=== PATIENT | female | born 1955 | race Two or more races ===

== ENCOUNTER 2020-07-24 18:34 | Emergency (ER) | payer MEDICARE ==
[~2020-07-24] VITALS: Ht 157.5 cm; Wt 73.9 kg
[~2020-07-24 18:34] MED LIST: ASPI81CH43 PO; BENZ1TAB2 PO; CARB25TA75 PO; DIVA250T12 PO; ENAL2.5T7 PO; ESCI-28 PO; FURO20TA3 PO; GLIM4TAB42 PO; METF-370 PO; METO25TA93 PO; MULT-20 OR; MUPI2CRE17 EX; QUET100T46 PO; RANI150C11 PO; SIMV-13 PO; TRAZ-184 PO; ZINC220C8 PO; [UNRECOGNIZED DRUG - CODE] PO
[2020-07-24 20:03] LABS: Basophils # (auto) 0 10 ^3/uL (0-0.2); Basophils % (auto) 0.5 % (0.0-2.0); Eosinophils # (auto) 0.1 10 ^3/uL (0-0.8); Eosinophils % (auto) 1.5 % (0.0-7.0); Hematocrit 37.3 % (36.0-46.0); Hemoglobin 12.6 g/dL (12.2-16.2); Lymphocytes # (auto) 1.1 10 ^3/uL (0.4-5.4); Lymphocytes % (auto) 19.3 % (10.0-50.0); Mean Corpuscular Hemoglobin 30.7 pg (28.0-32.0); Mean Corpuscular Hgb Conc. 33.7 g/dL (32.0-36.0); Mean Corpuscular Volume 91.2 fL (80.0-100.0); Monocytes # (auto) 0.3 10 ^3/uL (0-1.3); Monocytes % (auto) 4.9 % (0.0-12.0); Neutrophils # (auto) 4.3 10 ^3/uL (1.6-8.6); Neutrophils % (auto) 73.8 % (37.0-80.0); Nucleated Red Blood Cells % 0.1 %; Platelet Count (auto) 173 10^3/uL (140-450); Red Blood Cells 4.09 10^6/uL (4.0-5.20); Red Cell Distribution Width 16.2 % (11.8-14.3); White Blood Cell 5.8 10^3/uL (4.4-10.8)
[2020-07-24 20:17] LABS: INR 0.92 (0.9-1.15)
[2020-07-24 20:21] LABS: Alanine Aminotransferase 9 U/L (13-56); Albumin 3.3 g/dL (3.4-5.0); Anion Gap 3 (5-15); Aspartate Aminotransferase 12 U/L (15-37); BUN/Creatinine Ratio 26.9; Blood Urea Nitrogen 43 mg/dL (7-18); Calcium 9.1 mg/dL (8.5-10.1); Carbon Dioxide 28 mmol/L (21-32); Chloride 110 mmol/L (98-107); GFR African American 42 mL/min; GFR Non-African American 34 mL/min; Glucose 134 mg/dL (74-106); Magnesium 2.3 mg/dL (1.6-2.6); Potassium 4.4 mmol/L (3.5-5.1); Sodium 141 mmol/L (136-145)
[2020-07-24 20:26] LABS: Alkaline Phosphatase 155 U/L (45-117); Bilirubin, Total 0.2 mg/dL (0.2-1.0); Total Protein 7.8 g/dL (6.4-8.2)
[2020-07-24] MEDS ORDERED: SODIUM CHLORIDE 0.9% 500 ML IV ONE (21:00)
[2020-07-24] MEDS ORDERED: DICYCLOMINE HCL (10MG/ML) 2 ML AMPULE IM ONE (21:15)
[2020-07-24] MEDS ORDERED: hydrALAZINE HCL 20 MG/ML VL IV ONE (22:00)
[2020-07-24] MEDS ORDERED: ACETAMINOPHEN 500 MG TAB PO ONE (22:00)
[2020-07-24 22:46] LABS: Urine Bacteria FEW /hpf (None Seen); Urine Blood Negative /uL (Negative); Urine Specific Gravity 1.007 (1.001-1.035); Urine WBC 6 /hpf (0 - 5)
[2020-07-25 00:21] VITALS: BP 178/79
== END 2020-07-25 01:25 | disposition home or self-care (01) ==
LOC: EDBD 18:34 → ER 18:36
DX: K59.00 Constipation, unspecified (principal); N39.0 Urinary tract infection, site not specified; E11.22 Type 2 diabetes mellitus with diabetic chronic kidney disease; I13.0 Hypertensive heart and chronic kidney disease with heart failure and stage 1 through stage 4 chronic kidney disease, or unspecified chronic kidney disease; N18.9 Chronic kidney disease, unspecified; I50.9 Heart failure, unspecified; Z79.82 Long term (current) use of aspirin; Z79.899 Other long term (current) drug therapy; Z20.822 Contact with and (suspected) exposure to COVID-19
CPT/HCPCS: 36415; 74176; 80053; 81001; 83605; 83735; 83880; 84484; 85025; 85610; 87426; 93005; 96361; 96372; 96374; 99285; J0360; J0500

== ENCOUNTER 2020-08-08 19:54 | Inpatient (IN) | payer MEDICARE, MEDICAID ==
[~2020-08-08] VITALS: Ht 165.1 cm; Wt 71.5 kg
[2020-08-08] MEDS ORDERED: DOPamine 1600MCG/ML D5W 250 ML IV ONE (19:56)
[2020-08-08] MEDS ORDERED: ATROPINE SULFATE 1 MG/1 ML VIAL ONE ×2 (19:57→20:04)
[2020-08-08] MEDS ORDERED: ATROPINE SULF 0.5 MG/5ML SYR IV STA ×2 (19:58→20:05)
[2020-08-08] MEDS: DOPamine 1600MCG/ML D5W 250 ML IV SCH (20:02)
[2020-08-08] MEDS ORDERED: SODIUM BICARBONATE 8.4% INJ 50ML SYRINGE ONE (20:11)
[2020-08-08] MEDS ORDERED: CALCIUM CHLOR(10%) 100MG/ML 10ML SYRINGE IV ONE (20:11)
[2020-08-08] MEDS ORDERED: GLUCAGON HYDROCHLORIDE (RDNA) 1 MG VIAL ONE ×2 (20:12→20:15)
[2020-08-08 20:38] VITALS: BP 106/39
[2020-08-08 21:07] LABS: Basophils # (auto) 0 10 ^3/uL (0-0.2); Basophils % (auto) 0.6 % (0.0-2.0); Eosinophils # (auto) 0 10 ^3/uL (0-0.8); Hematocrit 30.4 % (36.0-46.0); Hemoglobin 9.2 g/dL (12.2-16.2); Lymphocytes # (auto) 0.7 10 ^3/uL (0.4-5.4); Mean Corpuscular Hemoglobin 31.3 pg (28.0-32.0); Mean Corpuscular Hgb Conc. 30.4 g/dL (32.0-36.0); Mean Corpuscular Volume 103.1 fL (80.0-100.0); Monocytes # (auto) 0.4 10 ^3/uL (0-1.3); Monocytes % (auto) 9.8 % (0.0-12.0); Neutrophils % (auto) 71.6 % (37.0-80.0); Nucleated Red Blood Cells % 1.7 %; Platelet Count (auto) 145 10^3/uL (140-450); Red Blood Cells 2.95 10^6/uL (4.0-5.20); Red Cell Distribution Width 18.4 % (11.8-14.3); White Blood Cell 4.2 10^3/uL (4.4-10.8)
[2020-08-08 21:17] LABS: Albumin 2.8 g/dL (3.4-5.0); Anion Gap 5 (5-15); Blood Urea Nitrogen 69 mg/dL (7-18); Calcium 7.3 mg/dL (8.5-10.1); Carbon Dioxide 16 mmol/L (21-32); Chloride 114 mmol/L (98-107); Glucose 245 mg/dL (74-106); Magnesium 2.5 mg/dL (1.6-2.6); Sodium 135 mmol/L (136-145)
[2020-08-08 21:25] LABS: Alanine Aminotransferase 10 U/L (13-56); Alkaline Phosphatase 186 U/L (45-117); Aspartate Aminotransferase 16 U/L (15-37); BUN/Creatinine Ratio 24.9; Bilirubin, Total 0.2 mg/dL (0.2-1.0); GFR African American 22 mL/min; GFR Non-African American 18 mL/min; Total Protein 6.3 g/dL (6.4-8.2)
[2020-08-08 21:34] LABS: Potassium 7.3 mmol/L (3.5-5.1)
[2020-08-08] MEDS ORDERED: InsuLIN REG 1unit/0.01ml Soln (100units/ml) IV ONE (21:45)
[2020-08-08] MEDS ORDERED: CALCIUM GLUC 1,000mg/50ml-NS 50 ML IV ONE (21:45)
[2020-08-08] MEDS ORDERED: SODIUM ZIRCONIUM CYCL 10 GM PAK PO ONE (21:45)
[2020-08-08] MEDS ORDERED: DEXTROSE (50%) 50ML SYRG IV ONE (21:45)
[2020-08-08] MEDS ORDERED: ALBUTEROL SULF 2.5 MG/0.5ML(0.5%) NEB SOLN NEB ONE (21:45)
[2020-08-08] MEDS ORDERED: SODIUM BICARBONATE 8.4% INJ 50ML SYRINGE IV ONE (21:45)
[2020-08-08] MEDS ORDERED: ALBUTEROL SULF 2.5 MG/0.5ML(0.5%) NEB SOLN ONE (21:53)
[2020-08-08] MEDS: CARBIDOPA W LEVODOPA 25/100mg TABLET PO SCH (22:00)
[2020-08-08] MEDS ORDERED: NITROGLYCERIN 0.4 MG SL TAB SL PRN (22:00)
[2020-08-08] MEDS ORDERED: DEXTROSE (50%) 50ML SYRG IV PRN (22:00)
[2020-08-08] MEDS ORDERED: ATORVASTATIN 20 MG TAB PO SCH (22:00)
[2020-08-08] MEDS ORDERED: MORPHINE SULF INJ 2 MG/ML SYRINGE 1ML IV PRN (22:00)
[2020-08-08] MEDS ORDERED: ACETAMINOPHEN 325 MG TAB PO PRN (22:00)
[2020-08-08] MEDS ORDERED: InsuLIN REG 1unit/0.01ml Soln (100units/ml) ONE (22:06)
[2020-08-08 22:14] VITALS: BP 113/41
[2020-08-08 22:14] LABS: Urine Bacteria FEW /hpf (None Seen); Urine Blood Negative /uL (Negative); Urine Hyaline Cast FEW /lpf (0 - 2); Urine WBC 3 /hpf (0 - 5)
[2020-08-08] MEDS ORDERED: SODIUM BICARBONATE 50ML VIAL 150 ML in SOD CHL 0.45% 1,000 ML IV SCH (22:30)
[2020-08-08] MEDS ORDERED: SODIUM BICARBONATE 8.4 % INJ 50ML VIAL IV ONE (22:54)
[2020-08-09] VITALS (80 sets, daily range): BP systolic 92–177; BP diastolic 24–102
[2020-08-09] MEDS ORDERED: SODIUM BICARBONATE 8.4% INJ 50ML SYRINGE IV STA (00:05)
[2020-08-09] MEDS ORDERED: GLUCAGON HYDROCHLORIDE (RDNA) 1 MG VIAL IV ONE (00:15)
[2020-08-09] MEDS ORDERED: CALCIUM CHLOR(10%) 100MG/ML 10ML SYRINGE IV STA (00:16)
[2020-08-09] MEDS: InsuLIN REG 1unit/0.01ml Soln (100units/ml) SC SCH ×5 (01:39→22:00)
[2020-08-09] MEDS: ACCU-CHEK COMFORT CURVE STRIP VI SCH ×5 (01:43→22:18)
[2020-08-09] MEDS ORDERED: FUROSEMIDE 20 MG TAB PO SCH (06:00)
[2020-08-09] MEDS: CARBIDOPA W LEVODOPA 25/100mg TABLET PO SCH (06:00)
[2020-08-09] MEDS ORDERED: ETOMIDATE (2MG/ML) 20ML VIAL IV ONE (07:11)
[2020-08-09] MEDS ORDERED: SUCCINYLCHOLINE CHLORIDE 20 MG/ML 10ML VIAL IV ONE (07:11)
[2020-08-09] MEDS: DOPamine 1600MCG/ML D5W 250 ML IV SCH (07:30)
[2020-08-09] MEDS ORDERED: MIDAZOLAM DRIP 50 mg/50mL 50 ML IV ONE (07:42)
[2020-08-09 07:45] LABS: Basophils # (auto) 0 10 ^3/uL (0-0.2); Basophils % (auto) 0.2 % (0.0-2.0); Eosinophils # (auto) 0.1 10 ^3/uL (0-0.8); Eosinophils % (auto) 0.6 % (0.0-7.0); Hematocrit 31.2 % (36.0-46.0); Lymphocytes # (auto) 0.6 10 ^3/uL (0.4-5.4); Mean Corpuscular Hemoglobin 31.1 pg (28.0-32.0); Mean Corpuscular Hgb Conc. 32.1 g/dL (32.0-36.0); Mean Corpuscular Volume 96.9 fL (80.0-100.0); Monocytes # (auto) 1.7 10 ^3/uL (0-1.3); Monocytes % (auto) 16.6 % (0.0-12.0); Neutrophils # (auto) 7.9 10 ^3/uL (1.6-8.6); Neutrophils % (auto) 76.6 % (37.0-80.0); Nucleated Red Blood Cells % 1.3 %; Platelet Count (auto) 184 10^3/uL (140-450); Red Blood Cells 3.22 10^6/uL (4.0-5.20); Red Cell Distribution Width 17.3 % (11.8-14.3); White Blood Cell 10.3 10^3/uL (4.4-10.8)
[2020-08-09] MEDS: MIDAZOLAM DRIP 50 mg/50mL 50 ML IV SCH ×2 (08:00→14:14)
[2020-08-09] MEDS ORDERED: PANTOPRAZOLE 40 MG TAB PO SCH (10:00)
[2020-08-09 11:08] LABS: Albumin 2.7 g/dL (3.4-5.0); Anion Gap 6 (5-15); Blood Urea Nitrogen 67 mg/dL (7-18); Calcium 7.9 mg/dL (8.5-10.1); Carbon Dioxide 21 mmol/L (21-32); Chloride 112 mmol/L (98-107); Glucose 103 mg/dL (74-106); Sodium 139 mmol/L (136-145)
[2020-08-09 11:14] LABS: Alanine Aminotransferase 8 U/L (13-56); Alkaline Phosphatase 161 U/L (45-117); Aspartate Aminotransferase 13 U/L (15-37); BUN/Creatinine Ratio 24.5; Bilirubin, Total 0.3 mg/dL (0.2-1.0); GFR African American 22 mL/min; GFR Non-African American 18 mL/min; Total Protein 6.2 g/dL (6.4-8.2)
[2020-08-09 11:18] LABS: Potassium 6.5 mmol/L (3.5-5.1)
[2020-08-09] MEDS ORDERED: InsuLIN REG 1unit/0.01ml Soln (100units/ml) IV ONE (12:30)
[2020-08-09] MEDS ORDERED: SODIUM ZIRCONIUM CYCL 10 GM PAK GT ONE (12:30)
[2020-08-09] MEDS ORDERED: STERILE WATER IV SCH (12:30)
[2020-08-09] MEDS ORDERED: DEXTROSE (50%) 50ML SYRG IV ONE (12:30)
[2020-08-09] MEDS ORDERED: SODIUM BICARBONATE IV SCH (12:30)
[2020-08-09] MEDS ORDERED: SODIUM BICARBONATE 8.4 % INJ 50ML VIAL IV ONE (12:30)
[2020-08-09] MEDS ORDERED: PIPERACILLIN-TAZOB 3.375GM 100 ML IV ONE (14:00)
[2020-08-09] MEDS ORDERED: PANTOPRAZOLE 40 MG/10 ML VIAL INJ IV ONE (14:00)
[2020-08-09] MEDS ORDERED: ENOXAPARIN SOD 30 MG/0.3 ML SYRINGE SC ONE (14:00)
[2020-08-09] MEDS: SODIUM BICARBONATE 50ML VIAL 150 ML in SOD CHL 0.45% 1,000 ML IV SCH (15:00)
[2020-08-09] MEDS: FUROSEMIDE 20 MG/2 ML VIAL IV SCH (17:53)
[2020-08-09] MEDS: PIPERACILLIN-TAZOB 3.375GM 100 ML IV SCH (22:18)
[2020-08-09] MEDS: SODIUM CHLOR 0.9% PF (SALINE LOCK) 10ML VIAL/SYR IV SCH (22:18)
[2020-08-09] MEDS ORDERED: fentaNYL Drip 2500mCg/250mlNS 250 ML IV ONE (22:48)
[2020-08-09] MEDS: fentaNYL Drip 2500mCg/250mlNS 250 ML IV SCH ×2 (22:50→23:00)
[2020-08-09 23:34] LABS: Calcium 6.4 mg/dL (8.5-10.1); Potassium 4.7 mmol/L (3.5-5.1)
[2020-08-09 23:38] LABS: BUN/Creatinine Ratio 27.8
[2020-08-09] MEDS ORDERED: CALCIUM GLUC 1,000mg/50ml-NS 50 ML IV ONE (23:45)
[2020-08-09] MEDS ORDERED: CALCIUM GLUC 4.65 MEQ/10ML 10 ML IV ONE (23:57)
[2020-08-10] VITALS (96 sets, daily range): BP systolic 104–188; BP diastolic 40–87
[2020-08-10] MEDS: MIDAZOLAM DRIP 50 mg/50mL 50 ML IV SCH ×5 (00:38→19:48)
[2020-08-10] MEDS ORDERED: SODIUM CHLORIDE 0.9% 1,000 ML IV SCH (02:45)
[2020-08-10] MEDS: DOPamine 1600MCG/ML D5W 250 ML IV SCH ×2 (04:40→17:26)
[2020-08-10] MEDS: SODIUM BICARBONATE 50ML VIAL 150 ML in SOD CHL 0.45% 1,000 ML IV SCH ×5 (05:53→17:26)
[2020-08-10] MEDS: FUROSEMIDE 20 MG/2 ML VIAL IV SCH ×2 (05:54→17:48)
[2020-08-10] MEDS: PIPERACILLIN-TAZOB 3.375GM 100 ML IV SCH ×3 (05:54→21:35)
[2020-08-10 06:20] LABS: Basophils # (auto) 0 10 ^3/uL (0-0.2); Basophils % (auto) 0.6 % (0.0-2.0); Eosinophils # (auto) 0.1 10 ^3/uL (0-0.8); Eosinophils % (auto) 1.7 % (0.0-7.0); Hematocrit 21.9 % (36.0-46.0); Lymphocytes # (auto) 0.8 10 ^3/uL (0.4-5.4); Lymphocytes % (auto) 16.3 % (10.0-50.0); Mean Corpuscular Hemoglobin 32.1 pg (28.0-32.0); Mean Corpuscular Hgb Conc. 35.3 g/dL (32.0-36.0); Monocytes # (auto) 0.5 10 ^3/uL (0-1.3); Monocytes % (auto) 10.6 % (0.0-12.0); Neutrophils # (auto) 3.4 10 ^3/uL (1.6-8.6); Neutrophils % (auto) 70.8 % (37.0-80.0); Nucleated Red Blood Cells % 0.4 %; Platelet Count (auto) 127 10^3/uL (140-450); Red Cell Distribution Width 16.5 % (11.8-14.3); White Blood Cell 4.8 10^3/uL (4.4-10.8)
[2020-08-10 06:22] LABS: Hemoglobin 7.7 g/dL (12.2-16.2)
[2020-08-10] MEDS: ACCU-CHEK COMFORT CURVE STRIP VI SCH ×4 (06:26→21:34)
[2020-08-10] MEDS: InsuLIN REG 1unit/0.01ml Soln (100units/ml) SC SCH ×4 (06:26→21:34)
[2020-08-10 06:43] LABS: Calcium 7.5 mg/dL (8.5-10.1)
[2020-08-10 06:45] LABS: BUN/Creatinine Ratio 27.5
[2020-08-10] MEDS: PANTOPRAZOLE 40 MG/10 ML VIAL INJ IV SCH (09:42)
[2020-08-10] MEDS: SODIUM CHLOR 0.9% PF (SALINE LOCK) 10ML VIAL/SYR IV SCH ×2 (09:43→22:00)
[2020-08-10] MEDS ORDERED: ENOXAPARIN SOD 30 MG/0.3 ML SYRINGE SC SCH (10:00)
[2020-08-10] MEDS: hydrALAZINE HCL 20 MG/ML VL IV PRN ×2 (13:06→21:35)
[2020-08-10 13:43] LABS: % Iron Saturation 14.8 % (15-50)
[2020-08-10] MEDS ORDERED: SODIUM FERR GLUC 62.5MG/5ML 125 MG in SODIUM CHL 0.9% 100 ML IV ONE (14:15)
[2020-08-11] VITALS (90 sets, daily range): BP systolic 87–180; BP diastolic 40–89
[2020-08-11] MEDS: MIDAZOLAM DRIP 50 mg/50mL 50 ML IV SCH ×2 (03:24→18:27)
[2020-08-11 04:23] LABS: Basophils # (auto) 0 10 ^3/uL (0-0.2); Eosinophils # (auto) 0.1 10 ^3/uL (0-0.8); Hematocrit 21.7 % (36.0-46.0); Lymphocytes # (auto) 0.8 10 ^3/uL (0.4-5.4); Monocytes # (auto) 0.4 10 ^3/uL (0-1.3); Platelet Count (auto) 133 10^3/uL (140-450); White Blood Cell 4.2 10^3/uL (4.4-10.8)
[2020-08-11 04:26] LABS: Basophils % (auto) 0.6 % (0.0-2.0); Eosinophils % (auto) 3.2 % (0.0-7.0); Hemoglobin 7.4 g/dL (12.2-16.2); Lymphocytes % (auto) 18.9 % (10.0-50.0); Mean Corpuscular Hemoglobin 31.1 pg (28.0-32.0); Mean Corpuscular Hgb Conc. 34.3 g/dL (32.0-36.0); Mean Corpuscular Volume 90.7 fL (80.0-100.0); Monocytes % (auto) 9.9 % (0.0-12.0); Neutrophils # (auto) 2.8 10 ^3/uL (1.6-8.6); Neutrophils % (auto) 67.4 % (37.0-80.0); Nucleated Red Blood Cells % 0.1 %; Red Blood Cells 2.39 10^6/uL (4.0-5.20); Red Cell Distribution Width 16.6 % (11.8-14.3)
[2020-08-11 04:43] LABS: Potassium 4.2 mmol/L (3.5-5.1)
[2020-08-11 04:47] LABS: BUN/Creatinine Ratio 26.9; Calcium 7.3 mg/dL (8.5-10.1); Phosphorus 3.4 mg/dL (2.5-4.90)
[2020-08-11] MEDS: SODIUM BICARBONATE 50ML VIAL 150 ML in SOD CHL 0.45% 1,000 ML IV SCH ×3 (05:00→20:20)
[2020-08-11] MEDS: PIPERACILLIN-TAZOB 3.375GM 100 ML IV SCH ×3 (06:28→22:09)
[2020-08-11] MEDS: FUROSEMIDE 20 MG/2 ML VIAL IV SCH ×2 (06:28→18:00)
[2020-08-11] MEDS: InsuLIN REG 1unit/0.01ml Soln (100units/ml) SC SCH ×4 (07:00→22:00)
[2020-08-11] MEDS: ACCU-CHEK COMFORT CURVE STRIP VI SCH ×4 (07:18→22:04)
[2020-08-11] MEDS: fentaNYL Drip 2500mCg/250mlNS 250 ML IV SCH (09:03)
[2020-08-11] MEDS: hydrALAZINE HCL 20 MG/ML VL IV PRN (09:21)
[2020-08-11] MEDS: PANTOPRAZOLE 40 MG/10 ML VIAL INJ IV SCH (09:32)
[2020-08-11] MEDS: SODIUM CHLOR 0.9% PF (SALINE LOCK) 10ML VIAL/SYR IV SCH ×2 (09:33→22:04)
[2020-08-11] MEDS: DOPamine 1600MCG/ML D5W 250 ML IV SCH (10:50)
[2020-08-11] MEDS: SODIUM FERR GLUC 62.5MG/5ML 125 MG in SODIUM CHL 0.9% 100 ML IV SCH (12:10)
[2020-08-11] MEDS ORDERED: FUROSEMIDE 40 MG/4 ML VIAL IV ONE (12:15)
[2020-08-11] MEDS ORDERED: METOPROLOL TARTRATE 25 MG TAB PO ONE ×2 (13:45→14:15)
[2020-08-11] MEDS ORDERED: CARBIDOPA W LEVODOPA 25/100mg TABLET PO SCH (14:00)
[2020-08-11] MEDS: CARBIDOPA W LEVODOPA 25/100mg TABLET PO SCH ×2 (14:52→22:48)
[2020-08-11] MEDS ORDERED: ETOMIDATE (2MG/ML) 20ML VIAL IV ONE (17:33)
[2020-08-11] MEDS ORDERED: ROCURONIUM 10MG/ML 10ML VIAL IV ONE (17:33)
[2020-08-11] MEDS: METOPROLOL TARTRATE 25 MG TAB PO SCH (22:00)
[2020-08-11] MEDS ORDERED: METOPROLOL TARTRATE 25 MG TAB PO SCH (22:00)
[2020-08-12] VITALS (100 sets, daily range): BP systolic 68–175; BP diastolic 47–78
[2020-08-12] MEDS: MIDAZOLAM DRIP 50 mg/50mL 50 ML IV SCH ×3 (00:26→20:00)
[2020-08-12] MEDS: DOPamine 1600MCG/ML D5W 250 ML IV SCH ×2 (01:55→14:20)
[2020-08-12] MEDS: SODIUM BICARBONATE 50ML VIAL 150 ML in SOD CHL 0.45% 1,000 ML IV SCH ×3 (04:00→19:20)
[2020-08-12 04:39] LABS: Basophils # (auto) 0.1 10 ^3/uL (0-0.2); Eosinophils # (auto) 0.1 10 ^3/uL (0-0.8); Lymphocytes # (auto) 0.9 10 ^3/uL (0.4-5.4); Lymphocytes % (auto) 19.2 % (10.0-50.0); Mean Corpuscular Volume 91.1 fL (80.0-100.0); Red Cell Distribution Width 16.8 % (11.8-14.3); White Blood Cell 4.6 10^3/uL (4.4-10.8)
[2020-08-12 04:41] LABS: Basophils % (auto) 1.1 % (0.0-2.0); Eosinophils % (auto) 2.7 % (0.0-7.0); Mean Corpuscular Hemoglobin 31.8 pg (28.0-32.0); Mean Corpuscular Hgb Conc. 34.9 g/dL (32.0-36.0); Monocytes # (auto) 0.6 10 ^3/uL (0-1.3); Monocytes % (auto) 12.7 % (0.0-12.0); Neutrophils % (auto) 64.3 % (37.0-80.0); Nucleated Red Blood Cells % 0.1 %; Platelet Count (auto) 149 10^3/uL (140-450); Red Blood Cells 2.52 10^6/uL (4.0-5.20)
[2020-08-12 05:06] LABS: Calcium 7.5 mg/dL (8.5-10.1); Potassium 4.4 mmol/L (3.5-5.1)
[2020-08-12 05:08] LABS: BUN/Creatinine Ratio 22.2
[2020-08-12] MEDS: ACCU-CHEK COMFORT CURVE STRIP VI SCH ×4 (06:19→21:51)
[2020-08-12] MEDS: FUROSEMIDE 20 MG/2 ML VIAL IV SCH ×2 (06:19→18:40)
[2020-08-12] MEDS: CARBIDOPA W LEVODOPA 25/100mg TABLET PO SCH ×3 (06:19→21:51)
[2020-08-12] MEDS: PIPERACILLIN-TAZOB 3.375GM 100 ML IV SCH (06:19)
[2020-08-12] MEDS: InsuLIN REG 1unit/0.01ml Soln (100units/ml) SC SCH ×4 (06:30→21:58)
[2020-08-12] MEDS: PANTOPRAZOLE 40 MG/10 ML VIAL INJ IV SCH (11:29)
[2020-08-12] MEDS: SODIUM CHLOR 0.9% PF (SALINE LOCK) 10ML VIAL/SYR IV SCH ×2 (11:30→21:50)
[2020-08-12] MEDS: METOPROLOL TARTRATE 25 MG TAB PO SCH ×2 (11:30→21:50)
[2020-08-12] MEDS: SODIUM FERR GLUC 62.5MG/5ML 125 MG in SODIUM CHL 0.9% 100 ML IV SCH (11:31)
[2020-08-12] MEDS: hydrALAZINE HCL 20 MG/ML VL IV PRN (21:50)
[2020-08-12] MEDS: fentaNYL Drip 2500mCg/250mlNS 250 ML IV SCH ×2 (23:00→23:50)
[2020-08-13] VITALS (100 sets, daily range): BP systolic 109–182; BP diastolic 43–76
[2020-08-13] MEDS: MIDAZOLAM DRIP 50 mg/50mL 50 ML IV SCH ×3 (01:22→21:28)
[2020-08-13] MEDS: SODIUM BICARBONATE 50ML VIAL 150 ML in SOD CHL 0.45% 1,000 ML IV SCH ×3 (03:00→18:20)
[2020-08-13] MEDS: CARBIDOPA W LEVODOPA 25/100mg TABLET PO SCH ×3 (05:58→21:27)
[2020-08-13] MEDS: FUROSEMIDE 20 MG/2 ML VIAL IV SCH ×2 (05:58→18:33)
[2020-08-13] MEDS: InsuLIN REG 1unit/0.01ml Soln (100units/ml) SC SCH ×4 (06:19→22:00)
[2020-08-13] MEDS: ACCU-CHEK COMFORT CURVE STRIP VI SCH ×4 (06:19→22:00)
[2020-08-13] MEDS ORDERED: Glucerna 1.2 Cal 1Liter BOTTLE GT SCH (07:30)
[2020-08-13] MEDS: DOPamine 1600MCG/ML D5W 250 ML IV SCH ×2 (08:05→23:10)
[2020-08-13] MEDS: METOPROLOL TARTRATE 25 MG TAB PO SCH ×2 (11:05→21:27)
[2020-08-13] MEDS: levoFLOXacin 500MG 100 ML IV SCH (11:05)
[2020-08-13] MEDS: PANTOPRAZOLE 40 MG/10 ML VIAL INJ IV SCH (11:06)
[2020-08-13] MEDS: SODIUM CHLOR 0.9% PF (SALINE LOCK) 10ML VIAL/SYR IV SCH ×2 (11:12→22:00)
[2020-08-13] MEDS: hydrALAZINE HCL 20 MG/ML VL IV PRN ×2 (11:41→19:07)
[2020-08-13] MEDS: SODIUM FERR GLUC 62.5MG/5ML 125 MG in SODIUM CHL 0.9% 100 ML IV SCH (15:36)
[2020-08-14] VITALS (89 sets, daily range): BP systolic 95–201; BP diastolic 44–99
[2020-08-14] MEDS: hydrALAZINE HCL 20 MG/ML VL IV PRN ×3 (01:03→21:50)
[2020-08-14] MEDS: SODIUM BICARBONATE 50ML VIAL 150 ML in SOD CHL 0.45% 1,000 ML IV SCH ×3 (02:00→17:20)
[2020-08-14] MEDS: fentaNYL Drip 2500mCg/250mlNS 250 ML IV SCH ×2 (03:23→23:11)
[2020-08-14] MEDS: MIDAZOLAM DRIP 50 mg/50mL 50 ML IV SCH ×2 (03:27→20:00)
[2020-08-14 04:41] LABS: Basophils # (auto) 0 10 ^3/uL (0-0.2); Basophils % (auto) 0.5 % (0.0-2.0); Eosinophils # (auto) 0.1 10 ^3/uL (0-0.8); Eosinophils % (auto) 3.2 % (0.0-7.0); Hematocrit 23.3 % (36.0-46.0); Hemoglobin 8.1 g/dL (12.2-16.2); Lymphocytes # (auto) 0.6 10 ^3/uL (0.4-5.4); Lymphocytes % (auto) 15.6 % (10.0-50.0); Mean Corpuscular Hemoglobin 32.2 pg (28.0-32.0); Mean Corpuscular Hgb Conc. 34.9 g/dL (32.0-36.0); Mean Corpuscular Volume 92.1 fL (80.0-100.0); Monocytes # (auto) 0.6 10 ^3/uL (0-1.3); Monocytes % (auto) 15.1 % (0.0-12.0); Neutrophils # (auto) 2.7 10 ^3/uL (1.6-8.6); Neutrophils % (auto) 65.6 % (37.0-80.0); Nucleated Red Blood Cells % 0.5 %; Platelet Count (auto) 125 10^3/uL (140-450); Red Blood Cells 2.53 10^6/uL (4.0-5.20); Red Cell Distribution Width 16.5 % (11.8-14.3); White Blood Cell 4.1 10^3/uL (4.4-10.8)
[2020-08-14 05:00] LABS: Chloride 113 mmol/L (98-107); Potassium 3.8 mmol/L (3.5-5.1); Sodium 142 mmol/L (136-145)
[2020-08-14 05:03] LABS: Anion Gap 7 (5-15); Aspartate Aminotransferase 11 U/L (15-37); BUN/Creatinine Ratio 17.7; Blood Urea Nitrogen 48 mg/dL (7-18); Calcium 8.2 mg/dL (8.5-10.1); Carbon Dioxide 22 mmol/L (21-32); GFR African American 23 mL/min; GFR Non-African American 19 mL/min; Glucose 110 mg/dL (74-106)
[2020-08-14 05:08] LABS: Alanine Aminotransferase < 6 U/L (13-56); Albumin 1.7 g/dL (3.4-5.0); Alkaline Phosphatase 145 U/L (45-117); Bilirubin, Total 0.3 mg/dL (0.2-1.0); Total Protein 5.7 g/dL (6.4-8.2)
[2020-08-14] MEDS: CARBIDOPA W LEVODOPA 25/100mg TABLET PO SCH ×3 (06:11→21:48)
[2020-08-14] MEDS: InsuLIN REG 1unit/0.01ml Soln (100units/ml) SC SCH ×4 (06:11→21:52)
[2020-08-14] MEDS: ACCU-CHEK COMFORT CURVE STRIP VI SCH ×4 (06:12→21:52)
[2020-08-14] MEDS: FUROSEMIDE 20 MG/2 ML VIAL IV SCH (06:15)
[2020-08-14] MEDS: METOPROLOL TARTRATE 25 MG TAB PO SCH ×2 (10:00→21:48)
[2020-08-14] MEDS: PANTOPRAZOLE 40 MG/10 ML VIAL INJ IV SCH (11:00)
[2020-08-14] MEDS: levoFLOXacin 500MG 100 ML IV SCH (11:00)
[2020-08-14] MEDS: SODIUM CHLOR 0.9% PF (SALINE LOCK) 10ML VIAL/SYR IV SCH ×2 (11:03→21:47)
[2020-08-14] MEDS ORDERED: EPOETIN ALFA-EPBX 10,000 UNIT/1ML VIAL SC ONE (11:15)
[2020-08-14] MEDS: SODIUM FERR GLUC 62.5MG/5ML 125 MG in SODIUM CHL 0.9% 100 ML IV SCH (12:44)
[2020-08-14 13:17] LABS: % Iron Saturation 18.1 % (15-50)
[2020-08-14] MEDS: DOPamine 1600MCG/ML D5W 250 ML IV SCH (14:15)
[2020-08-15] VITALS (93 sets, daily range): BP systolic 121–185; BP diastolic 49–92
[2020-08-15] MEDS: SODIUM BICARBONATE 50ML VIAL 150 ML in SOD CHL 0.45% 1,000 ML IV SCH ×4 (01:00→23:37)
[2020-08-15] MEDS: fentaNYL Drip 2500mCg/250mlNS 250 ML IV SCH ×2 (04:30→17:46)
[2020-08-15 04:37] LABS: Basophils # (auto) 0 10 ^3/uL (0-0.2); Eosinophils # (auto) 0.1 10 ^3/uL (0-0.8); Mean Corpuscular Hemoglobin 31.8 pg (28.0-32.0); Monocytes # (auto) 0.5 10 ^3/uL (0-1.3); Nucleated Red Blood Cells % 0.6 %; Red Cell Distribution Width 16.3 % (11.8-14.3)
[2020-08-15 04:39] LABS: Basophils % (auto) 0.7 % (0.0-2.0); Eosinophils % (auto) 4.3 % (0.0-7.0); Hematocrit 21.8 % (36.0-46.0); Hemoglobin 7.6 g/dL (12.2-16.2); Lymphocytes # (auto) 0.7 10 ^3/uL (0.4-5.4); Lymphocytes % (auto) 20.4 % (10.0-50.0); Mean Corpuscular Hgb Conc. 34.9 g/dL (32.0-36.0); Mean Corpuscular Volume 91.2 fL (80.0-100.0); Monocytes % (auto) 14.9 % (0.0-12.0); Neutrophils % (auto) 59.7 % (37.0-80.0); Platelet Count (auto) 101 10^3/uL (140-450); White Blood Cell 3.4 10^3/uL (4.4-10.8)
[2020-08-15 04:50] LABS: Albumin 1.7 g/dL (3.4-5.0); Anion Gap 8 (5-15); Carbon Dioxide 20 mmol/L (21-32); Chloride 113 mmol/L (98-107); Potassium 3.9 mmol/L (3.5-5.1); Sodium 141 mmol/L (136-145)
[2020-08-15 04:56] LABS: Alanine Aminotransferase < 6 U/L (13-56); Alkaline Phosphatase 131 U/L (45-117); Aspartate Aminotransferase 9 U/L (15-37); BUN/Creatinine Ratio 16.7; Bilirubin, Total 0.3 mg/dL (0.2-1.0); Blood Urea Nitrogen 41 mg/dL (7-18); GFR African American 25 mL/min; GFR Non-African American 21 mL/min; Glucose 79 mg/dL (74-106); Total Protein 5.3 g/dL (6.4-8.2)
[2020-08-15] MEDS: DOPamine 1600MCG/ML D5W 250 ML IV SCH (05:20)
[2020-08-15] MEDS: CARBIDOPA W LEVODOPA 25/100mg TABLET PO SCH ×3 (05:49→21:45)
[2020-08-15] MEDS: InsuLIN REG 1unit/0.01ml Soln (100units/ml) SC SCH ×4 (05:55→21:44)
[2020-08-15] MEDS: ACCU-CHEK COMFORT CURVE STRIP VI SCH ×4 (05:55→21:46)
[2020-08-15] MEDS: MIDAZOLAM DRIP 50 mg/50mL 50 ML IV SCH (05:56)
[2020-08-15] MEDS ORDERED: FUROSEMIDE 20 MG/2 ML VIAL IV SCH (10:00)
[2020-08-15] MEDS: levoFLOXacin 250MG 50 ML IV SCH (10:16)
[2020-08-15] MEDS: METOPROLOL TARTRATE 25 MG TAB PO SCH ×2 (10:17→21:46)
[2020-08-15] MEDS: PANTOPRAZOLE 40 MG/10 ML VIAL INJ IV SCH (10:17)
[2020-08-15] MEDS: ENOXAPARIN SOD 30 MG/0.3 ML SYRINGE SC SCH (10:17)
[2020-08-15] MEDS: SODIUM CHLOR 0.9% PF (SALINE LOCK) 10ML VIAL/SYR IV SCH ×2 (10:18→21:44)
[2020-08-15] MEDS: hydrALAZINE HCL 20 MG/ML VL IV PRN ×2 (12:15→20:11)
[2020-08-15] MEDS: SODIUM FERR GLUC 62.5MG/5ML 125 MG in SODIUM CHL 0.9% 100 ML IV SCH (14:03)
[2020-08-15] MEDS: hydrALAZINE HCL 25 MG TAB PO SCH (21:45)
[2020-08-16] VITALS (106 sets, daily range): BP systolic 111–192; BP diastolic 55–145
[2020-08-16] MEDS: MIDAZOLAM DRIP 50 mg/50mL 50 ML IV SCH ×2 (01:04→14:37)
[2020-08-16] MEDS: hydrALAZINE HCL 20 MG/ML VL IV PRN ×3 (02:49→17:15)
[2020-08-16] MEDS: fentaNYL Drip 2500mCg/250mlNS 250 ML IV SCH ×2 (04:28→20:56)
[2020-08-16 04:55] LABS: BUN/Creatinine Ratio 14.8; Calcium 8.6 mg/dL (8.5-10.1)
[2020-08-16] MEDS: CARBIDOPA W LEVODOPA 25/100mg TABLET PO SCH ×3 (06:17→21:30)
[2020-08-16] MEDS: InsuLIN REG 1unit/0.01ml Soln (100units/ml) SC SCH ×4 (06:18→21:34)
[2020-08-16] MEDS: ACCU-CHEK COMFORT CURVE STRIP VI SCH ×4 (06:18→21:31)
[2020-08-16] MEDS: hydrALAZINE HCL 25 MG TAB PO SCH ×3 (06:18→21:31)
[2020-08-16] MEDS: SODIUM BICARBONATE 50ML VIAL 150 ML in SOD CHL 0.45% 1,000 ML IV SCH ×3 (07:40→23:00)
[2020-08-16] MEDS: PANTOPRAZOLE 40 MG/10 ML VIAL INJ IV SCH (09:56)
[2020-08-16] MEDS: METOPROLOL TARTRATE 25 MG TAB PO SCH ×2 (09:56→21:31)
[2020-08-16] MEDS: levoFLOXacin 250MG 50 ML IV SCH (09:56)
[2020-08-16] MEDS: SODIUM CHLOR 0.9% PF (SALINE LOCK) 10ML VIAL/SYR IV SCH ×2 (09:57→21:31)
[2020-08-16] MEDS: ENOXAPARIN SOD 30 MG/0.3 ML SYRINGE SC SCH (09:57)
[2020-08-17] VITALS (94 sets, daily range): BP systolic 113–181; BP diastolic 54–95
[2020-08-17 04:31] LABS: Basophils # (auto) 0 10 ^3/uL (0-0.2); Basophils % (auto) 0.5 % (0.0-2.0); Hematocrit 22.6 % (36.0-46.0); Hemoglobin 7.9 g/dL (12.2-16.2); Nucleated Red Blood Cells % 0.1 %; White Blood Cell 4.8 10^3/uL (4.4-10.8)
[2020-08-17 04:33] LABS: Eosinophils # (auto) 0.2 10 ^3/uL (0-0.8); Eosinophils % (auto) 3.4 % (0.0-7.0); Lymphocytes # (auto) 0.4 10 ^3/uL (0.4-5.4); Lymphocytes % (auto) 8.3 % (10.0-50.0); Mean Corpuscular Hemoglobin 31.9 pg (28.0-32.0); Mean Corpuscular Volume 91.3 fL (80.0-100.0); Monocytes # (auto) 0.4 10 ^3/uL (0-1.3); Neutrophils # (auto) 3.8 10 ^3/uL (1.6-8.6); Neutrophils % (auto) 78.8 % (37.0-80.0); Platelet Count (auto) 106 10^3/uL (140-450); Red Blood Cells 2.48 10^6/uL (4.0-5.20); Red Cell Distribution Width 15.9 % (11.8-14.3)
[2020-08-17 04:49] LABS: BUN/Creatinine Ratio 12.6; Calcium 8.7 mg/dL (8.5-10.1)
[2020-08-17] MEDS: hydrALAZINE HCL 25 MG TAB PO SCH ×3 (06:24→21:45)
[2020-08-17] MEDS: SODIUM BICARBONATE 50ML VIAL 150 ML in SOD CHL 0.45% 1,000 ML IV SCH ×3 (06:24→21:46)
[2020-08-17] MEDS: ACCU-CHEK COMFORT CURVE STRIP VI SCH ×4 (06:24→21:46)
[2020-08-17] MEDS: CARBIDOPA W LEVODOPA 25/100mg TABLET PO SCH ×3 (06:24→21:45)
[2020-08-17] MEDS: InsuLIN REG 1unit/0.01ml Soln (100units/ml) SC SCH ×4 (06:27→21:49)
[2020-08-17] MEDS: MIDAZOLAM DRIP 50 mg/50mL 50 ML IV SCH (08:00)
[2020-08-17] MEDS: PANTOPRAZOLE 40 MG/10 ML VIAL INJ IV SCH (09:55)
[2020-08-17] MEDS: ENOXAPARIN SOD 30 MG/0.3 ML SYRINGE SC SCH (09:55)
[2020-08-17] MEDS: METOPROLOL TARTRATE 25 MG TAB PO SCH ×2 (09:56→21:46)
[2020-08-17] MEDS: levoFLOXacin 250MG 50 ML IV SCH (09:56)
[2020-08-17] MEDS: SODIUM CHLOR 0.9% PF (SALINE LOCK) 10ML VIAL/SYR IV SCH ×2 (09:57→21:46)
[2020-08-17] MEDS ORDERED: FUROSEMIDE 20 MG/2 ML VIAL IV ONE (12:15)
[2020-08-17] MEDS ORDERED: FUROSEMIDE 20 MG/2 ML VIAL ONE (12:16)
[2020-08-17] MEDS: hydrALAZINE HCL 20 MG/ML VL IV PRN ×2 (15:03→22:36)
[2020-08-17] MEDS: fentaNYL Drip 2500mCg/250mlNS 250 ML IV SCH (19:29)
[2020-08-17] MEDS: PROPOFOL 100 ML IV SCH (23:02)
[2020-08-18] VITALS (96 sets, daily range): BP systolic 110–175; BP diastolic 31–106
[2020-08-18] MEDS: SODIUM BICARBONATE 50ML VIAL 150 ML in SOD CHL 0.45% 1,000 ML IV SCH ×3 (05:40→17:16)
[2020-08-18] MEDS: CARBIDOPA W LEVODOPA 25/100mg TABLET PO SCH ×3 (05:47→22:29)
[2020-08-18] MEDS: hydrALAZINE HCL 25 MG TAB PO SCH ×3 (05:47→22:29)
[2020-08-18] MEDS: ACCU-CHEK COMFORT CURVE STRIP VI SCH ×4 (05:50→22:29)
[2020-08-18] MEDS: InsuLIN REG 1unit/0.01ml Soln (100units/ml) SC SCH ×4 (05:51→22:00)
[2020-08-18] MEDS: fentaNYL Drip 2500mCg/250mlNS 250 ML IV SCH (06:56)
[2020-08-18] MEDS: PROPOFOL 100 ML IV SCH ×2 (06:56→13:08)
[2020-08-18] MEDS: MIDAZOLAM DRIP 50 mg/50mL 50 ML IV SCH (07:34)
[2020-08-18] MEDS: FUROSEMIDE 40 MG/4 ML VIAL IV SCH (09:40)
[2020-08-18] MEDS: METOPROLOL TARTRATE 25 MG TAB PO SCH ×2 (09:41→22:00)
[2020-08-18] MEDS: SODIUM CHLOR 0.9% PF (SALINE LOCK) 10ML VIAL/SYR IV SCH ×2 (09:41→22:28)
[2020-08-18] MEDS: PANTOPRAZOLE 40 MG/10 ML VIAL INJ IV SCH (09:41)
[2020-08-18] MEDS: levoFLOXacin 250MG 50 ML IV SCH (09:41)
[2020-08-18] MEDS: ENOXAPARIN SOD 30 MG/0.3 ML SYRINGE SC SCH (09:42)
[2020-08-19] VITALS (96 sets, daily range): BP systolic 95–162; BP diastolic 46–97
[2020-08-19] MEDS: SODIUM BICARBONATE 50ML VIAL 150 ML in SOD CHL 0.45% 1,000 ML IV SCH ×3 (04:40→18:36)
[2020-08-19 04:51] LABS: Basophils # (auto) 0 10 ^3/uL (0-0.2); Eosinophils # (auto) 0.2 10 ^3/uL (0-0.8); Eosinophils % (auto) 3.6 % (0.0-7.0); Lymphocytes # (auto) 1.1 10 ^3/uL (0.4-5.4); Lymphocytes % (auto) 22.4 % (10.0-50.0); Mean Corpuscular Hemoglobin 32.5 pg (28.0-32.0); Mean Corpuscular Volume 90.4 fL (80.0-100.0); Monocytes # (auto) 0.4 10 ^3/uL (0-1.3); Monocytes % (auto) 8.3 % (0.0-12.0); Neutrophils # (auto) 3.2 10 ^3/uL (1.6-8.6); Neutrophils % (auto) 64.7 % (37.0-80.0); Nucleated Red Blood Cells % 0.3 %; Platelet Count (auto) 207 10^3/uL (140-450); Red Blood Cells 2.76 10^6/uL (4.0-5.20)
[2020-08-19 04:57] LABS: Potassium 3.3 mmol/L (3.5-5.1)
[2020-08-19 05:04] LABS: BUN/Creatinine Ratio 11.8; Calcium 8.1 mg/dL (8.5-10.1)
[2020-08-19] MEDS: hydrALAZINE HCL 25 MG TAB PO SCH ×3 (05:41→22:45)
[2020-08-19] MEDS: InsuLIN REG 1unit/0.01ml Soln (100units/ml) SC SCH ×4 (05:41→22:00)
[2020-08-19] MEDS: ACCU-CHEK COMFORT CURVE STRIP VI SCH ×4 (05:41→22:45)
[2020-08-19] MEDS: CARBIDOPA W LEVODOPA 25/100mg TABLET PO SCH ×3 (05:41→22:37)
[2020-08-19] MEDS: hydrALAZINE HCL 20 MG/ML VL IV PRN (06:25)
[2020-08-19] MEDS: MIDAZOLAM DRIP 50 mg/50mL 50 ML IV SCH (07:11)
[2020-08-19] MEDS: PROPOFOL 100 ML IV SCH ×3 (07:27→18:51)
[2020-08-19] MEDS: fentaNYL Drip 2500mCg/250mlNS 250 ML IV SCH ×2 (07:27→23:01)
[2020-08-19] MEDS ORDERED: POTASSIUM CHLORIDE 20 MEQ, LIDOCAINE 1% (LOCAL ANESTH.) 2 ML in SODIUM CHL 0.9% 100 ML IV ONE (09:15)
[2020-08-19] MEDS: ENOXAPARIN SOD 30 MG/0.3 ML SYRINGE SC SCH (09:55)
[2020-08-19] MEDS: FUROSEMIDE 40 MG/4 ML VIAL IV SCH (09:55)
[2020-08-19] MEDS: PANTOPRAZOLE 40 MG/10 ML VIAL INJ IV SCH (09:55)
[2020-08-19] MEDS: METOPROLOL TARTRATE 25 MG TAB PO SCH ×2 (09:56→22:00)
[2020-08-19] MEDS: levoFLOXacin 250MG 50 ML IV SCH (09:56)
[2020-08-19] MEDS: SODIUM CHLOR 0.9% PF (SALINE LOCK) 10ML VIAL/SYR IV SCH ×2 (10:00→22:37)
[2020-08-19] MEDS: SODIUM FERR GLUC 62.5MG/5ML 125 MG in SODIUM CHL 0.9% 100 ML IV SCH (12:57)
[2020-08-20] VITALS (82 sets, daily range): BP systolic 89–177; BP diastolic 44–94
[2020-08-20] MEDS: PROPOFOL 100 ML IV SCH ×5 (00:05→20:25)
[2020-08-20] MEDS: SODIUM BICARBONATE 50ML VIAL 150 ML in SOD CHL 0.45% 1,000 ML IV SCH ×4 (03:40→22:29)
[2020-08-20 04:47] LABS: Hematocrit 25.3 % (36.0-46.0); Hemoglobin 8.8 g/dL (12.2-16.2); Mean Corpuscular Hemoglobin 31.8 pg (28.0-32.0); Mean Corpuscular Hgb Conc. 34.9 g/dL (32.0-36.0); Mean Corpuscular Volume 91.1 fL (80.0-100.0); Platelet Count (auto) 255 10^3/uL (140-450); Red Blood Cells 2.77 10^6/uL (4.0-5.20); Red Cell Distribution Width 15.9 % (11.8-14.3); White Blood Cell 5.5 10^3/uL (4.4-10.8)
[2020-08-20 04:56] LABS: Albumin 2.1 g/dL (3.4-5.0); Anion Gap 10 (5-15); Blood Urea Nitrogen 30 mg/dL (7-18); Calcium 8.3 mg/dL (8.5-10.1); Carbon Dioxide 20 mmol/L (21-32); Chloride 111 mmol/L (98-107); Glucose 87 mg/dL (74-106); Potassium 3.7 mmol/L (3.5-5.1); Sodium 141 mmol/L (136-145)
[2020-08-20 04:57] LABS: Band Neutrophils % (manual) 0; Basophils % (manual) 0 (0.0-2.0); Blast Cells 0; Metamyelocytes % 0; Promyelocytes % 0; Reactive Lymphocytes 0
[2020-08-20 04:59] LABS: Alanine Aminotransferase < 6 U/L (13-56); Alkaline Phosphatase 139 U/L (45-117); Aspartate Aminotransferase 14 U/L (15-37); BUN/Creatinine Ratio 13.6; Bilirubin, Total 0.2 mg/dL (0.2-1.0); GFR African American 29 mL/min; GFR Non-African American 24 mL/min
[2020-08-20] MEDS: hydrALAZINE HCL 25 MG TAB PO SCH ×3 (05:57→22:28)
[2020-08-20] MEDS: CARBIDOPA W LEVODOPA 25/100mg TABLET PO SCH ×3 (05:57→22:28)
[2020-08-20 06:25] LABS: Eosinophils % (manual) 4 (0-7); Lymphocytes % (manual) 24 (10.0-50.0); Monocytes % (manual) 10 (0-12); Myelocytes % 1
[2020-08-20] MEDS: InsuLIN REG 1unit/0.01ml Soln (100units/ml) SC SCH ×4 (06:45→22:00)
[2020-08-20] MEDS: ACCU-CHEK COMFORT CURVE STRIP VI SCH ×4 (06:45→22:27)
[2020-08-20] MEDS: MIDAZOLAM DRIP 50 mg/50mL 50 ML IV SCH (07:49)
[2020-08-20] MEDS: FUROSEMIDE 40 MG/4 ML VIAL IV SCH (09:32)
[2020-08-20] MEDS: PANTOPRAZOLE 40 MG/10 ML VIAL INJ IV SCH (09:32)
[2020-08-20] MEDS: ENOXAPARIN SOD 30 MG/0.3 ML SYRINGE SC SCH (09:33)
[2020-08-20] MEDS: METOPROLOL TARTRATE 25 MG TAB PO SCH ×2 (09:33→22:00)
[2020-08-20] MEDS: LACTULOSE 20Gm/30ML SOLN NG SCH (09:33)
[2020-08-20] MEDS: SODIUM CHLOR 0.9% PF (SALINE LOCK) 10ML VIAL/SYR IV SCH ×2 (09:34→22:20)
[2020-08-20] MEDS: levoFLOXacin 250MG 50 ML IV SCH (09:34)
[2020-08-20] MEDS: fentaNYL Drip 2500mCg/250mlNS 250 ML IV SCH (10:17)
[2020-08-20] MEDS: SODIUM FERR GLUC 62.5MG/5ML 125 MG in SODIUM CHL 0.9% 100 ML IV SCH (12:29)
[2020-08-21] VITALS (102 sets, daily range): BP systolic 111–192; BP diastolic 55–93
[2020-08-21] MEDS: PROPOFOL 100 ML IV SCH ×2 (00:56→04:42)
[2020-08-21] MEDS: fentaNYL Drip 2500mCg/250mlNS 250 ML IV SCH (01:02)
[2020-08-21 05:10] LABS: Hematocrit 27.4 % (36.0-46.0); Hemoglobin 9.4 g/dL (12.2-16.2); Mean Corpuscular Hemoglobin 31.5 pg (28.0-32.0); Mean Corpuscular Hgb Conc. 34.2 g/dL (32.0-36.0); Mean Corpuscular Volume 92.1 fL (80.0-100.0); Platelet Count (auto) 271 10^3/uL (140-450); Red Blood Cells 2.97 10^6/uL (4.0-5.20); Red Cell Distribution Width 15.9 % (11.8-14.3)
[2020-08-21 05:16] LABS: Band Neutrophils % (manual) 0; Basophils % (manual) 0 (0.0-2.0); Blast Cells 0; Myelocytes % 0; Promyelocytes % 0; Reactive Lymphocytes 0
[2020-08-21 05:19] LABS: Albumin 2.2 g/dL (3.4-5.0); Anion Gap 9 (5-15); Blood Urea Nitrogen 33 mg/dL (7-18); Calcium 8.3 mg/dL (8.5-10.1); Carbon Dioxide 22 mmol/L (21-32); Chloride 111 mmol/L (98-107); Glucose 86 mg/dL (74-106); Potassium 3.8 mmol/L (3.5-5.1); Sodium 142 mmol/L (136-145)
[2020-08-21 05:22] LABS: Alanine Aminotransferase < 6 U/L (13-56); Alkaline Phosphatase 160 U/L (45-117); Aspartate Aminotransferase 16 U/L (15-37); BUN/Creatinine Ratio 15.5; Bilirubin, Total 0.2 mg/dL (0.2-1.0); GFR African American 30 mL/min; GFR Non-African American 25 mL/min; Total Protein 6.5 g/dL (6.4-8.2)
[2020-08-21] MEDS: InsuLIN REG 1unit/0.01ml Soln (100units/ml) SC SCH ×4 (06:31→21:58)
[2020-08-21] MEDS: CARBIDOPA W LEVODOPA 25/100mg TABLET PO SCH ×3 (06:31→21:29)
[2020-08-21] MEDS: ACCU-CHEK COMFORT CURVE STRIP VI SCH ×4 (06:31→21:57)
[2020-08-21 06:42] LABS: Eosinophils % (manual) 2 (0-7); Lymphocytes % (manual) 19 (10.0-50.0); Metamyelocytes % 1; Monocytes % (manual) 14 (0-12)
[2020-08-21] MEDS: hydrALAZINE HCL 25 MG TAB PO SCH ×3 (07:05→21:24)
[2020-08-21] MEDS: MIDAZOLAM DRIP 50 mg/50mL 50 ML IV SCH (08:00)
[2020-08-21] MEDS: hydrALAZINE HCL 20 MG/ML VL IV PRN ×2 (09:06→18:20)
[2020-08-21] MEDS: LACTULOSE 20Gm/30ML SOLN NG SCH (10:00)
[2020-08-21] MEDS: PANTOPRAZOLE 40 MG/10 ML VIAL INJ IV SCH (10:17)
[2020-08-21] MEDS: SODIUM CHLOR 0.9% PF (SALINE LOCK) 10ML VIAL/SYR IV SCH ×2 (10:18→21:57)
[2020-08-21] MEDS: METOPROLOL TARTRATE 25 MG TAB PO SCH ×2 (10:18→21:23)
[2020-08-21] MEDS: ENOXAPARIN SOD 30 MG/0.3 ML SYRINGE SC SCH (10:19)
[2020-08-21] MEDS: FUROSEMIDE 40 MG/4 ML VIAL IV SCH (10:20)
[2020-08-21] MEDS: SODIUM BICARBONATE 50ML VIAL 150 ML in SOD CHL 0.45% 1,000 ML IV SCH ×2 (10:20→18:00)
[2020-08-21] MEDS: ceFAZolin 1GM/50ML 50 ML IV SCH ×2 (10:59→21:57)
[2020-08-21] MEDS: SODIUM FERR GLUC 62.5MG/5ML 125 MG in SODIUM CHL 0.9% 100 ML IV SCH ×2 (12:18→14:54)
[2020-08-21] MEDS: MORPHINE SULF INJ 2 MG/ML SYRINGE 1ML IV PRN (19:03)
[2020-08-21] MEDS: ONDANSETRON HCL 4 MG/2 ML VIAL IV PRN (19:03)
[2020-08-21] MEDS: MIDAZOLAM HCL 1MG/1ML-2 ML VIAL IV PRN (21:54)
[2020-08-22] VITALS (35 sets, daily range): BP systolic 126–183; BP diastolic 49–87
[2020-08-22] MEDS: hydrALAZINE HCL 20 MG/ML VL IV PRN ×2 (00:05→16:11)
[2020-08-22] MEDS: IPRATROPIUM BROM 0.5 MG/2.5ML INH SOL NEB SCH ×4 (00:17→18:02)
[2020-08-22] MEDS: ALBUTEROL SULF 2.5 MG/0.5ML(0.5%) NEB SOLN NEB SCH ×4 (00:17→18:02)
[2020-08-22] MEDS: SODIUM BICARBONATE 50ML VIAL 150 ML in SOD CHL 0.45% 1,000 ML IV SCH ×2 (00:21→07:47)
[2020-08-22] MEDS: MORPHINE SULF INJ 2 MG/ML SYRINGE 1ML IV PRN (00:57)
[2020-08-22] MEDS ORDERED: dilTIAZem 25 MG/5 ML VIAL IV ONE (03:30)
[2020-08-22 05:06] LABS: Albumin 2.5 g/dL (3.4-5.0); Anion Gap 8 (5-15); Blood Urea Nitrogen 28 mg/dL (7-18); Calcium 9.3 mg/dL (8.5-10.1); Carbon Dioxide 24 mmol/L (21-32); Chloride 109 mmol/L (98-107); Glucose 120 mg/dL (74-106); Potassium 3.6 mmol/L (3.5-5.1); Sodium 141 mmol/L (136-145)
[2020-08-22 05:08] LABS: BUN/Creatinine Ratio 13.9; GFR African American 32 mL/min; GFR Non-African American 26 mL/min
[2020-08-22 05:11] LABS: Alanine Aminotransferase < 6 U/L (13-56); Alkaline Phosphatase 155 U/L (45-117); Aspartate Aminotransferase 15 U/L (15-37); Bilirubin, Total 0.2 mg/dL (0.2-1.0); Total Protein 7.2 g/dL (6.4-8.2)
[2020-08-22] MEDS: MIDAZOLAM HCL 1MG/1ML-2 ML VIAL IV PRN (05:30)
[2020-08-22 05:35] LABS: Basophils # (auto) 0.1 10 ^3/uL (0-0.2); Basophils % (auto) 0.7 % (0.0-2.0); Eosinophils # (auto) 0 10 ^3/uL (0-0.8); Eosinophils % (auto) 0.2 % (0.0-7.0); Hematocrit 30.4 % (36.0-46.0); Hemoglobin 10.3 g/dL (12.2-16.2); Lymphocytes # (auto) 0.9 10 ^3/uL (0.4-5.4); Lymphocytes % (auto) 8.9 % (10.0-50.0); Mean Corpuscular Hemoglobin 31.4 pg (28.0-32.0); Mean Corpuscular Hgb Conc. 33.9 g/dL (32.0-36.0); Mean Corpuscular Volume 92.5 fL (80.0-100.0); Monocytes # (auto) 0.4 10 ^3/uL (0-1.3); Monocytes % (auto) 3.4 % (0.0-12.0); Neutrophils # (auto) 9.1 10 ^3/uL (1.6-8.6); Neutrophils % (auto) 86.8 % (37.0-80.0); Platelet Count (auto) 339 10^3/uL (140-450); Red Blood Cells 3.29 10^6/uL (4.0-5.20); Red Cell Distribution Width 16.1 % (11.8-14.3); White Blood Cell 10.5 10^3/uL (4.4-10.8)
[2020-08-22] MEDS: CARBIDOPA W LEVODOPA 25/100mg TABLET PO SCH ×3 (06:19→22:37)
[2020-08-22] MEDS: hydrALAZINE HCL 25 MG TAB PO SCH ×3 (06:19→23:05)
[2020-08-22] MEDS: ACCU-CHEK COMFORT CURVE STRIP VI SCH ×4 (06:31→22:27)
[2020-08-22] MEDS: InsuLIN REG 1unit/0.01ml Soln (100units/ml) SC SCH ×4 (06:31→22:00)
[2020-08-22] MEDS: LACTULOSE 20Gm/30ML SOLN NG SCH (10:00)
[2020-08-22] MEDS: SODIUM CHLOR 0.9% PF (SALINE LOCK) 10ML VIAL/SYR IV SCH ×2 (10:00→22:21)
[2020-08-22] MEDS: ENOXAPARIN SOD 30 MG/0.3 ML SYRINGE SC SCH (10:28)
[2020-08-22] MEDS: METOPROLOL TARTRATE 25 MG TAB PO SCH ×2 (10:29→22:35)
[2020-08-22] MEDS: FUROSEMIDE 40 MG/4 ML VIAL IV SCH (10:29)
[2020-08-22] MEDS: PANTOPRAZOLE 40 MG/10 ML VIAL INJ IV SCH (10:29)
[2020-08-22] MEDS: ceFAZolin 1GM/50ML 50 ML IV SCH ×3 (10:29→22:38)
[2020-08-22] MEDS: SODIUM FERR GLUC 62.5MG/5ML 125 MG in SODIUM CHL 0.9% 100 ML IV SCH (12:30)
[2020-08-23] VITALS (25 sets, daily range): BP systolic 132–183; BP diastolic 63–95
[2020-08-23] MEDS: hydrALAZINE HCL 20 MG/ML VL IV PRN (04:09)
[2020-08-23 04:12] LABS: Basophils # (auto) 0.1 10 ^3/uL (0-0.2); Basophils % (auto) 0.5 % (0.0-2.0); Eosinophils # (auto) 0 10 ^3/uL (0-0.8); Eosinophils % (auto) 0.1 % (0.0-7.0); Hematocrit 31.7 % (36.0-46.0); Hemoglobin 10.6 g/dL (12.2-16.2); Lymphocytes # (auto) 0.9 10 ^3/uL (0.4-5.4); Lymphocytes % (auto) 8.2 % (10.0-50.0); Mean Corpuscular Hemoglobin 31.3 pg (28.0-32.0); Mean Corpuscular Hgb Conc. 33.3 g/dL (32.0-36.0); Mean Corpuscular Volume 94.1 fL (80.0-100.0); Monocytes # (auto) 0.7 10 ^3/uL (0-1.3); Monocytes % (auto) 6.4 % (0.0-12.0); Neutrophils # (auto) 9.8 10 ^3/uL (1.6-8.6); Neutrophils % (auto) 84.8 % (37.0-80.0); Nucleated Red Blood Cells % 0.1 %; Platelet Count (auto) 337 10^3/uL (140-450); Red Blood Cells 3.37 10^6/uL (4.0-5.20); White Blood Cell 11.5 10^3/uL (4.4-10.8)
[2020-08-23 04:35] LABS: Calcium 9.6 mg/dL (8.5-10.1); Potassium 3.9 mmol/L (3.5-5.1)
[2020-08-23 04:37] LABS: BUN/Creatinine Ratio 17.3
[2020-08-23] MEDS: InsuLIN REG 1unit/0.01ml Soln (100units/ml) SC SCH ×4 (06:02→22:45)
[2020-08-23] MEDS: ACCU-CHEK COMFORT CURVE STRIP VI SCH ×4 (06:02→22:00)
[2020-08-23] MEDS: ALBUTEROL SULF 2.5 MG/0.5ML(0.5%) NEB SOLN NEB SCH ×3 (06:16→11:34)
[2020-08-23] MEDS: IPRATROPIUM BROM 0.5 MG/2.5ML INH SOL NEB SCH ×5 (06:16→23:04)
[2020-08-23] MEDS: CARBIDOPA W LEVODOPA 25/100mg TABLET PO SCH ×3 (06:27→21:08)
[2020-08-23] MEDS: ONDANSETRON HCL 4 MG/2 ML VIAL IV PRN ×2 (06:36→22:47)
[2020-08-23] MEDS: hydrALAZINE HCL 25 MG TAB PO SCH (06:39)
[2020-08-23] MEDS: PANTOPRAZOLE 40 MG/10 ML VIAL INJ IV SCH (09:57)
[2020-08-23] MEDS: ENOXAPARIN SOD 30 MG/0.3 ML SYRINGE SC SCH (09:58)
[2020-08-23] MEDS: FUROSEMIDE 40 MG/4 ML VIAL IV SCH (09:58)
[2020-08-23] MEDS: METOPROLOL TARTRATE 25 MG TAB PO SCH (09:58)
[2020-08-23] MEDS: LACTULOSE 20Gm/30ML SOLN NG SCH (09:58)
[2020-08-23] MEDS: ceFAZolin 1GM/50ML 50 ML IV SCH ×2 (09:59→22:36)
[2020-08-23] MEDS: SODIUM CHLOR 0.9% PF (SALINE LOCK) 10ML VIAL/SYR IV SCH ×2 (09:59→21:07)
[2020-08-23] MEDS: METOPROLOL TARTRATE 50 MG TAB PO SCH ×2 (14:00→21:08)
[2020-08-23] MEDS ORDERED: DIGOXIN (250MCG/ML) 2 ML AMPULE ONE (22:25)
[2020-08-23] MEDS: DIGOXIN (250MCG/ML) 2 ML AMPULE IV SCH ×2 (22:47→23:20)
[2020-08-24] VITALS (7 sets, daily range): BP systolic 141–168; BP diastolic 61–98
[2020-08-24] MEDS: IPRATROPIUM BROM 0.5 MG/2.5ML INH SOL NEB SCH ×3 (06:27→18:18)
[2020-08-24] MEDS: ACCU-CHEK COMFORT CURVE STRIP VI SCH ×4 (06:44→22:15)
[2020-08-24] MEDS: CARBIDOPA W LEVODOPA 25/100mg TABLET PO SCH ×3 (06:44→22:00)
[2020-08-24] MEDS: InsuLIN REG 1unit/0.01ml Soln (100units/ml) SC SCH ×4 (06:45→22:15)
[2020-08-24] MEDS: PANTOPRAZOLE 40 MG/10 ML VIAL INJ IV SCH (08:26)
[2020-08-24] MEDS: SODIUM CHLOR 0.9% PF (SALINE LOCK) 10ML VIAL/SYR IV SCH ×2 (08:26→22:00)
[2020-08-24] MEDS: METOPROLOL TARTRATE 50 MG TAB PO SCH ×2 (08:27→22:15)
[2020-08-24] MEDS: ENOXAPARIN SOD 30 MG/0.3 ML SYRINGE SC SCH (08:27)
[2020-08-24 08:42] LABS: Basophils # (auto) 0.1 10 ^3/uL (0-0.2); Basophils % (auto) 0.6 % (0.0-2.0); Eosinophils # (auto) 0 10 ^3/uL (0-0.8); Eosinophils % (auto) 0.1 % (0.0-7.0); Hematocrit 32.4 % (36.0-46.0); Lymphocytes % (auto) 8.4 % (10.0-50.0); Mean Corpuscular Hemoglobin 31.6 pg (28.0-32.0); Mean Corpuscular Volume 92.9 fL (80.0-100.0); Monocytes # (auto) 0.8 10 ^3/uL (0-1.3); Monocytes % (auto) 6.2 % (0.0-12.0); Neutrophils # (auto) 10.3 10 ^3/uL (1.6-8.6); Neutrophils % (auto) 84.7 % (37.0-80.0); Platelet Count (auto) 311 10^3/uL (140-450); Red Blood Cells 3.48 10^6/uL (4.0-5.20); White Blood Cell 12.2 10^3/uL (4.4-10.8)
[2020-08-24 09:04] LABS: Calcium 9.7 mg/dL (8.5-10.1); Potassium 3.9 mmol/L (3.5-5.1)
[2020-08-24 09:07] LABS: BUN/Creatinine Ratio 22.3
[2020-08-24] MEDS: ceFAZolin 1GM/50ML 50 ML IV SCH ×2 (09:30→22:30)
[2020-08-24] MEDS ORDERED: FUROSEMIDE 20 MG/2 ML VIAL IV SCH (10:00)
[2020-08-24] MEDS: LABETALOL HCL 5 MG/ML 4ML SYRINGE IV PRN (12:03)
[2020-08-24] MEDS ORDERED: amLODIPine BESYLATE 5 MG TAB PO ONE (12:15)
[2020-08-24] MEDS ORDERED: FUROSEMIDE 20 MG TAB PO ONE (12:15)
[2020-08-24] MEDS: FUROSEMIDE 20 MG TAB PO SCH (17:17)
[2020-08-25] MEDS: LABETALOL HCL 5 MG/ML 4ML SYRINGE IV PRN ×2 (01:21→07:40)
[2020-08-25 05:00] VITALS: BP 164/100
[2020-08-25] MEDS: InsuLIN REG 1unit/0.01ml Soln (100units/ml) SC SCH ×3 (07:00→17:00)
[2020-08-25 07:02] LABS: Basophils # (auto) 0.1 10 ^3/uL (0-0.2); Basophils % (auto) 1.1 % (0.0-2.0); Eosinophils # (auto) 0.1 10 ^3/uL (0-0.8); Eosinophils % (auto) 1.7 % (0.0-7.0); Hematocrit 31.6 % (36.0-46.0); Lymphocytes # (auto) 1.4 10 ^3/uL (0.4-5.4); Lymphocytes % (auto) 17.7 % (10.0-50.0); Mean Corpuscular Hemoglobin 31.9 pg (28.0-32.0); Mean Corpuscular Hgb Conc. 34.7 g/dL (32.0-36.0); Mean Corpuscular Volume 91.9 fL (80.0-100.0); Monocytes # (auto) 0.5 10 ^3/uL (0-1.3); Monocytes % (auto) 6.5 % (0.0-12.0); Neutrophils # (auto) 5.9 10 ^3/uL (1.6-8.6); Platelet Count (auto) 308 10^3/uL (140-450); Red Blood Cells 3.44 10^6/uL (4.0-5.20); Red Cell Distribution Width 14.8 % (11.8-14.3); White Blood Cell 8.1 10^3/uL (4.4-10.8)
[2020-08-25] MEDS: IPRATROPIUM BROM 0.5 MG/2.5ML INH SOL NEB SCH ×3 (07:24→12:11)
[2020-08-25] MEDS: ACCU-CHEK COMFORT CURVE STRIP VI SCH ×3 (07:27→17:00)
[2020-08-25 07:28] LABS: Potassium 3.6 mmol/L (3.5-5.1)
[2020-08-25] MEDS: FUROSEMIDE 20 MG TAB PO SCH (07:28)
[2020-08-25] MEDS: CARBIDOPA W LEVODOPA 25/100mg TABLET PO SCH ×2 (07:29→13:23)
[2020-08-25 07:44] LABS: BUN/Creatinine Ratio 27.4; Calcium 9.1 mg/dL (8.5-10.1)
[2020-08-25 09:00] VITALS: BP 196/87
[2020-08-25] MEDS: SODIUM CHLOR 0.9% PF (SALINE LOCK) 10ML VIAL/SYR IV SCH (09:12)
[2020-08-25] MEDS: METOPROLOL TARTRATE 50 MG TAB PO SCH (09:12)
[2020-08-25] MEDS: ceFAZolin 1GM/50ML 50 ML IV SCH (09:13)
[2020-08-25] MEDS: ENOXAPARIN SOD 30 MG/0.3 ML SYRINGE SC SCH (09:13)
[2020-08-25] MEDS ORDERED: amLODIPine BESYLATE 5 MG TAB PO SCH (10:00)
[2020-08-25 12:57] VITALS: BP 155/78
[2020-08-26] MEDS ORDERED: ENOXAPARIN SOD 40 MG/0.4 ML SYRINGE SC SCH (10:00)
== END 2020-08-25 18:05 | disposition home or self-care (01) | DRG 870 ==
LOC: EDBD 19:54 → ER 19:56 → TELE 22:00 → ICU WEST 08-09 03:41 → TELE-EAST 08-24 02:27
PROVIDERS: ADMIT Nurse Practitioner; ATTEND Internal Medicine
PROC: 5A09357 Assistance with Respiratory Ventilation, Less than 24 Consecutive Hours, Continuous Positive Airway Pressure (ICD-10-PCS; principal; 2020-08-08)
PROC: 0BH17EZ Insertion of Endotracheal Airway into Trachea, Via Natural or Artificial Opening (ICD-10-PCS; 2020-08-09)
PROC: 5A1955Z Respiratory Ventilation, Greater than 96 Consecutive Hours (ICD-10-PCS; 2020-08-09)
PROC: 02HV33Z Insertion of Infusion Device into Superior Vena Cava, Percutaneous Approach (ICD-10-PCS; 2020-08-09)
PROC: 0BH17EZ Insertion of Endotracheal Airway into Trachea, Via Natural or Artificial Opening (ICD-10-PCS; 2020-08-11)
PROC: 0BP1XDZ Removal of Intraluminal Device from Trachea, External Approach (ICD-10-PCS; 2020-08-11)
PROC: 5A09357 Assistance with Respiratory Ventilation, Less than 24 Consecutive Hours, Continuous Positive Airway Pressure (ICD-10-PCS; 2020-08-22)
DX: A41.01 Sepsis due to Methicillin susceptible Staphylococcus aureus (principal); R65.21 Severe sepsis with septic shock; I50.43 Acute on chronic combined systolic (congestive) and diastolic (congestive) heart failure; J96.02 Acute respiratory failure with hypercapnia; J96.01 Acute respiratory failure with hypoxia; N17.0 Acute kidney failure with tubular necrosis; G93.41 Metabolic encephalopathy; J15.211 Pneumonia due to Methicillin susceptible Staphylococcus aureus; D62 Acute posthemorrhagic anemia; D68.59 Other primary thrombophilia; E44.0 Moderate protein-calorie malnutrition; I13.0 Hypertensive heart and chronic kidney disease with heart failure and stage 1 through stage 4 chronic kidney disease, or unspecified chronic kidney disease; J98.11 Atelectasis; Z99.11 Dependence on respirator [ventilator] status; E87.5 Hyperkalemia; R00.1 Bradycardia, unspecified; E66.9 Obesity, unspecified; G20 Parkinson's disease; F79 Unspecified intellectual disabilities; Z20.822 Contact with and (suspected) exposure to COVID-19; R68.0 Hypothermia, not associated with low environmental temperature; D63.8 Anemia in other chronic diseases classified elsewhere; I48.0 Paroxysmal atrial fibrillation; E11.22 Type 2 diabetes mellitus with diabetic chronic kidney disease; E78.5 Hyperlipidemia, unspecified; G40.909 Epilepsy, unspecified, not intractable, without status epilepticus; E11.21 Type 2 diabetes mellitus with diabetic nephropathy; H91.3 Deaf nonspeaking, not elsewhere classified; N18.32 Chronic kidney disease, stage 3b; Z86.73 Personal history of transient ischemic attack (TIA), and cerebral infarction without residual deficits; Z68.32 Body mass index [BMI] 32.0-32.9, adult
CPT/HCPCS: 36415; 36569; 36600; 70450; 71045; 76775; 80048; 80053; 80162; 81001; 82550; 82805; 82962; 83036; 83540; 83550; 83605; 83735; 83880; 84100; 84443; 84484; 85007; 85025; 85027; 85045; 85049; 85610; 87040; 87070; 87077; 87081; 87186; 87205; 87426; 93005; 93306; 93970; 94002; 94003; 94640; 94660; 96365; 96375; 97163; C9113; G0378; J0330; J0461; J0690; J1815; J1956; J2001; J2250; J2405; J2543; J2704; J3490; J7060

== ENCOUNTER 2020-08-26 22:20 | Inpatient (IN) | payer MEDICARE, MEDICAID ==
[~2020-08-26] VITALS: Ht 154.9 cm; Wt 74.3 kg
[2020-08-26 23:15] LABS: Basophils # (auto) 0.1 10 ^3/uL (0-0.2); Basophils % (auto) 1.2 % (0.0-2.0); Eosinophils # (auto) 0.2 10 ^3/uL (0-0.8); Eosinophils % (auto) 2.5 % (0.0-7.0); Hematocrit 32.3 % (36.0-46.0); Hemoglobin 11.1 g/dL (12.2-16.2); Lymphocytes # (auto) 0.9 10 ^3/uL (0.4-5.4); Lymphocytes % (auto) 11.9 % (10.0-50.0); Mean Corpuscular Hemoglobin 31.9 pg (28.0-32.0); Mean Corpuscular Hgb Conc. 34.3 g/dL (32.0-36.0); Mean Corpuscular Volume 93.2 fL (80.0-100.0); Monocytes # (auto) 0.4 10 ^3/uL (0-1.3); Monocytes % (auto) 5.9 % (0.0-12.0); Neutrophils # (auto) 5.7 10 ^3/uL (1.6-8.6); Neutrophils % (auto) 78.5 % (37.0-80.0); Red Blood Cells 3.47 10^6/uL (4.0-5.20); Red Cell Distribution Width 14.7 % (11.8-14.3); White Blood Cell 7.3 10^3/uL (4.4-10.8)
[2020-08-26 23:32] LABS: INR 1.32 (0.9-1.15); Partial Thromboplastin Time 31.9 sec (23.0-31.2)
[2020-08-26 23:41] LABS: Alanine Aminotransferase 7 U/L (13-56); Albumin 2.3 g/dL (3.4-5.0); Anion Gap 7 (5-15); Aspartate Aminotransferase 7 U/L (15-37); BUN/Creatinine Ratio 24.3; Blood Urea Nitrogen 41 mg/dL (7-18); Calcium 8.6 mg/dL (8.5-10.1); Carbon Dioxide 27 mmol/L (21-32); Chloride 104 mmol/L (98-107); GFR African American 39 mL/min; GFR Non-African American 32 mL/min; Glucose 176 mg/dL (74-106); Magnesium 2.1 mg/dL (1.6-2.6); Potassium 3.2 mmol/L (3.5-5.1); Sodium 138 mmol/L (136-145)
[2020-08-26 23:46] LABS: Alkaline Phosphatase 122 U/L (45-117); Bilirubin, Total 0.2 mg/dL (0.2-1.0); Total Protein 6.4 g/dL (6.4-8.2)
[2020-08-27 01:50] LABS: Urine Bacteria FEW /hpf (None Seen); Urine Blood Negative /uL (Negative); Urine Specific Gravity 1.005 (1.001-1.035); Urine WBC 32 /hpf (0 - 5)
[2020-08-27] MEDS ORDERED: levoFLOXacin 500MG 100 ML IV ONE (03:00)
[2020-08-27] MEDS ORDERED: MORPHINE SULF INJ 2 MG/ML SYRINGE 1ML IV PRN (04:15)
[2020-08-27] MEDS ORDERED: ACETAMINOPHEN 325 MG TAB PO PRN (04:15)
[2020-08-27] MEDS ORDERED: NITROGLYCERIN 0.4 MG SL TAB SL PRN (04:15)
[2020-08-27] MEDS ORDERED: DOCUSATE SOD 100 MG CAP PO PRN (04:15)
[2020-08-27] MEDS ORDERED: ONDANSETRON HCL 4 MG/2 ML VIAL IV PRN (04:15)
[2020-08-27] MEDS ORDERED: DEXTROSE (50%) 50ML SYRG IV PRN (04:15)
[2020-08-27] MEDS: SODIUM CHLOR 0.9% PF (SALINE LOCK) 10ML VIAL/SYR IV SCH ×3 (06:01→21:42)
[2020-08-27] MEDS: ACCU-CHEK COMFORT CURVE STRIP VI SCH ×4 (06:57→21:46)
[2020-08-27] MEDS: InsuLIN REG 1unit/0.01ml Soln (100units/ml) SC SCH ×4 (06:57→22:34)
[2020-08-27 07:33] LABS: Albumin 2.5 g/dL (3.4-5.0); Calcium 8.5 mg/dL (8.5-10.1); Potassium 3.6 mmol/L (3.5-5.1)
[2020-08-27 07:36] LABS: BUN/Creatinine Ratio 25.2; Bilirubin, Total 0.3 mg/dL (0.2-1.0); Total Protein 7.1 g/dL (6.4-8.2)
[2020-08-27 07:47] LABS: Basophils # (auto) 0.1 10 ^3/uL (0-0.2); Basophils % (auto) 1.3 % (0.0-2.0); Eosinophils # (auto) 0.3 10 ^3/uL (0-0.8); Eosinophils % (auto) 4.7 % (0.0-7.0); Hematocrit 35.8 % (36.0-46.0); Hemoglobin 12.3 g/dL (12.2-16.2); Lymphocytes # (auto) 1.1 10 ^3/uL (0.4-5.4); Lymphocytes % (auto) 15.4 % (10.0-50.0); Mean Corpuscular Hgb Conc. 34.3 g/dL (32.0-36.0); Mean Corpuscular Volume 93.3 fL (80.0-100.0); Monocytes # (auto) 0.5 10 ^3/uL (0-1.3); Neutrophils # (auto) 5.3 10 ^3/uL (1.6-8.6); Neutrophils % (auto) 71.6 % (37.0-80.0); Red Blood Cells 3.83 10^6/uL (4.0-5.20); Red Cell Distribution Width 15.1 % (11.8-14.3); White Blood Cell 7.4 10^3/uL (4.4-10.8)
[2020-08-27] MEDS ORDERED: cefTRIAXone 1GM/50ML D5W 50 ML IV ONE (10:00)
[2020-08-27] MEDS: ZINC SULFATE 220mg CAP or TAB PO SCH (10:27)
[2020-08-27] MEDS: MULTIPLE VITAMIN TAB PO SCH (10:27)
[2020-08-27] MEDS: ASCORBIC ACID 500 MG TAB PO SCH ×2 (10:28→21:43)
[2020-08-27] MEDS: FAMOTIDINE 20 MG TAB PO SCH ×2 (10:28→21:43)
[2020-08-27] MEDS: HEPARIN SODIUM (PORCINE) 5000 UNITS/ML 1ML VIAL SC SCH ×2 (10:29→21:46)
[2020-08-27 16:37] VITALS: BP 144/77
[2020-08-27] MEDS: HYDROcodone-ACET 5/325MG TAB PO PRN ×2 (17:20→21:53)
[2020-08-27 22:00] VITALS: BP 163/71
[2020-08-27 23:00] VITALS: BP 148/75
[2020-08-28 05:00] VITALS: BP 149/83
[2020-08-28] MEDS: SODIUM CHLOR 0.9% PF (SALINE LOCK) 10ML VIAL/SYR IV SCH ×3 (05:18→22:00)
[2020-08-28 05:20] LABS: Basophils # (auto) 0.1 10 ^3/uL (0-0.2); Basophils % (auto) 1.6 % (0.0-2.0); Eosinophils # (auto) 0.6 10 ^3/uL (0-0.8); Eosinophils % (auto) 7.4 % (0.0-7.0); Hematocrit 32.6 % (36.0-46.0); Hemoglobin 11.3 g/dL (12.2-16.2); Lymphocytes # (auto) 1.4 10 ^3/uL (0.4-5.4); Lymphocytes % (auto) 18.3 % (10.0-50.0); Mean Corpuscular Hemoglobin 32.1 pg (28.0-32.0); Mean Corpuscular Hgb Conc. 34.6 g/dL (32.0-36.0); Mean Corpuscular Volume 92.8 fL (80.0-100.0); Monocytes # (auto) 0.8 10 ^3/uL (0-1.3); Monocytes % (auto) 10.2 % (0.0-12.0); Neutrophils # (auto) 4.6 10 ^3/uL (1.6-8.6); Neutrophils % (auto) 62.5 % (37.0-80.0); Nucleated Red Blood Cells % 0.1 %; Red Blood Cells 3.51 10^6/uL (4.0-5.20); Red Cell Distribution Width 14.8 % (11.8-14.3); White Blood Cell 7.4 10^3/uL (4.4-10.8)
[2020-08-28] MEDS: HYDROcodone-ACET 5/325MG TAB PO PRN ×2 (05:20→09:17)
[2020-08-28 05:51] LABS: Albumin 2.5 g/dL (3.4-5.0); BUN/Creatinine Ratio 27.3; Bilirubin, Total 0.2 mg/dL (0.2-1.0); Calcium 8.5 mg/dL (8.5-10.1); Total Protein 6.6 g/dL (6.4-8.2)
[2020-08-28] MEDS: InsuLIN REG 1unit/0.01ml Soln (100units/ml) SC SCH ×4 (07:00→23:30)
[2020-08-28] MEDS: ACCU-CHEK COMFORT CURVE STRIP VI SCH ×4 (07:01→23:30)
[2020-08-28 09:00] VITALS: BP 160/88
[2020-08-28] MEDS ORDERED: cefTRIAXone 1GM/50ML D5W 50 ML IV SCH (09:00)
[2020-08-28] MEDS: ZINC SULFATE 220mg CAP or TAB PO SCH (09:16)
[2020-08-28] MEDS: levoFLOXacin 250MG 50 ML IV SCH (09:16)
[2020-08-28] MEDS: FAMOTIDINE 20 MG TAB PO SCH ×2 (09:16→23:21)
[2020-08-28] MEDS: MULTIPLE VITAMIN TAB PO SCH (09:16)
[2020-08-28] MEDS: ASCORBIC ACID 500 MG TAB PO SCH ×2 (09:17→23:21)
[2020-08-28] MEDS: HEPARIN SODIUM (PORCINE) 5000 UNITS/ML 1ML VIAL SC SCH ×2 (09:18→23:22)
[2020-08-28 13:00] VITALS: BP 184/86
[2020-08-28] MEDS: CARBIDOPA W LEVODOPA 25/100mg TABLET PO SCH ×2 (13:27→23:21)
[2020-08-28 14:30] VITALS: BP 156/80
[2020-08-28 16:55] VITALS: BP 142/77
[2020-08-28 23:45] VITALS: BP 143/68
[2020-08-29 05:36] VITALS: BP 121/68
[2020-08-29] MEDS: SODIUM CHLOR 0.9% PF (SALINE LOCK) 10ML VIAL/SYR IV SCH ×2 (06:45→14:30)
[2020-08-29] MEDS: CARBIDOPA W LEVODOPA 25/100mg TABLET PO SCH ×2 (06:45→14:00)
[2020-08-29] MEDS: InsuLIN REG 1unit/0.01ml Soln (100units/ml) SC SCH ×2 (07:00→11:30)
[2020-08-29] MEDS: ACCU-CHEK COMFORT CURVE STRIP VI SCH ×2 (07:00→11:34)
[2020-08-29 09:00] VITALS: BP 159/84
[2020-08-29] MEDS: ASCORBIC ACID 500 MG TAB PO SCH (09:59)
[2020-08-29] MEDS: FAMOTIDINE 20 MG TAB PO SCH (09:59)
[2020-08-29] MEDS: levoFLOXacin 250MG 50 ML IV SCH (09:59)
[2020-08-29] MEDS: ZINC SULFATE 220mg CAP or TAB PO SCH (09:59)
[2020-08-29] MEDS: MULTIPLE VITAMIN TAB PO SCH (10:00)
[2020-08-29] MEDS: HEPARIN SODIUM (PORCINE) 5000 UNITS/ML 1ML VIAL SC SCH (10:08)
[2020-08-29 13:00] VITALS: BP 150/75
== END 2020-08-29 16:45 | disposition home or self-care (01) | DRG 872 ==
LOC: EDBD 22:20 → ER 22:22 → OVERFLOW 08-27 04:16 → WEST WING 08-27 16:06
PROVIDERS: ADMIT Nurse Practitioner Family; ATTEND Internal Medicine
DX: A41.9 Sepsis, unspecified organism (principal); N39.0 Urinary tract infection, site not specified; I13.0 Hypertensive heart and chronic kidney disease with heart failure and stage 1 through stage 4 chronic kidney disease, or unspecified chronic kidney disease; E44.0 Moderate protein-calorie malnutrition; E87.6 Hypokalemia; E11.65 Type 2 diabetes mellitus with hyperglycemia; I95.9 Hypotension, unspecified; G20 Parkinson's disease; G40.909 Epilepsy, unspecified, not intractable, without status epilepticus; I50.9 Heart failure, unspecified; E11.22 Type 2 diabetes mellitus with diabetic chronic kidney disease; N18.30 Chronic kidney disease, stage 3 unspecified; F71 Moderate intellectual disabilities; F31.9 Bipolar disorder, unspecified; H91.3 Deaf nonspeaking, not elsewhere classified; Z86.73 Personal history of transient ischemic attack (TIA), and cerebral infarction without residual deficits; F41.9 Anxiety disorder, unspecified; K21.9 Gastro-esophageal reflux disease without esophagitis; Z79.84 Long term (current) use of oral hypoglycemic drugs; Z79.899 Other long term (current) drug therapy; Z20.822 Contact with and (suspected) exposure to COVID-19; B95.4 Other streptococcus as the cause of diseases classified elsewhere
CPT/HCPCS: 36415; 71045; 80053; 81001; 82962; 83605; 83735; 83880; 84484; 85025; 85049; 85379; 85610; 85730; 87040; 87081; 87086; 87426; 93005; 96361; 96365; 96366; 96367; 96372; G0378; J0696; J1815; J1956

== ENCOUNTER 2021-02-21 15:06 | Emergency (ER) | payer MEDICARE, MEDICAID ==
[~2021-02-21] VITALS: Ht 157.5 cm; Wt 67.1 kg
[~2021-02-21 15:06] MED LIST changes: -QUET100T46 PO; +QUET100T47 PO
[2021-02-21 16:00] LABS: Basophils # (auto) 0 10 ^3/uL (0-0.2); Lymphocytes # (auto) 0.2 10 ^3/uL (0.4-5.4); Monocytes # (auto) 0.3 10 ^3/uL (0-1.3); White Blood Cell 5.3 10^3/uL (4.4-10.8)
[2021-02-21 16:01] LABS: Monocytes % (auto) 5.8 % (0.0-12.0); Neutrophils # (auto) 4.7 10 ^3/uL (1.6-8.6); Red Cell Distribution Width 16.1 % (11.8-14.3)
[2021-02-21 16:07] LABS: Hematocrit 30.6 % (36.0-46.0); Neutrophils % (auto) 88.7 % (37.0-80.0)
[2021-02-21 16:09] LABS: Basophils % (auto) 0.3 % (0.0-2.0); Eosinophils # (auto) 0 10 ^3/uL (0-0.8); Eosinophils % (auto) 0.8 % (0.0-7.0); Hemoglobin 9.7 g/dL (12.2-16.2); Lymphocytes % (auto) 4.4 % (10.0-50.0); Mean Corpuscular Hemoglobin 33.1 pg (28.0-32.0); Mean Corpuscular Hgb Conc. 31.8 g/dL (32.0-36.0); Mean Corpuscular Volume 104.2 fL (80.0-100.0); Nucleated Red Blood Cells % 0.3 %; Red Blood Cells 2.94 10^6/uL (4.0-5.20)
[2021-02-21 16:15] LABS: Albumin 2.8 g/dL (3.4-5.0); BUN/Creatinine Ratio 24.7; Calcium 7.4 mg/dL (8.5-10.1)
[2021-02-21 16:18] LABS: Bilirubin, Total 0.2 mg/dL (0.2-1.0); Total Protein 6.4 g/dL (6.4-8.2)
[2021-02-21 16:25] LABS: Potassium 6.4 mmol/L (3.5-5.1)
[2021-02-21] MEDS ORDERED: CALCIUM GLUC 1,000mg/50ml-NS 50 ML IV ONE ×2 (21:30)
[2021-02-21] MEDS ORDERED: SODIUM ZIRCONIUM CYCL 10 GM PAK PO ONE (22:45)
[2021-02-22 01:17] LABS: Urine Bacteria FEW /hpf (None Seen); Urine Blood Negative /uL (Negative); Urine Hyaline Cast MOD /lpf (0 - 2); Urine Mucus FEW (None Seen); Urine Specific Gravity 1.023 (1.001-1.035); Urine WBC 4 /hpf (0 - 5)
[2021-02-22] MEDS ORDERED: HYDROCORTISONE SOD SUCC 100 MG/2ML INJ VIAL IV ONE (01:30)
[2021-02-22] MEDS ORDERED: SODIUM CHLORIDE 0.9% 1,000 ML IV ONE ×3 (01:30→08:30)
[2021-02-22 03:17] LABS: Magnesium 1.8 mg/dL (1.6-2.6)
[2021-02-22 03:25] LABS: INR 1.1 (0.9-1.15); Partial Thromboplastin Time 43.2 sec (23.6-33.0)
[2021-02-22] MEDS ORDERED: DOPamine 1600MCG/ML D5W 250 ML IV ONE (08:15)
[2021-02-22] MEDS ORDERED: SUCCINYLCHOLINE CHLORIDE 20 MG/ML 10ML VIAL IV ONE ×3 (09:20→09:23)
[2021-02-22] MEDS ORDERED: ETOMIDATE (2MG/ML) 20ML VIAL IV ONE ×2 (09:20→09:22)
[2021-02-22] MEDS ORDERED: SODIUM ZIRCONIUM CYCL 10 GM PAK PO ONE (09:30)
[2021-02-22] MEDS ORDERED: InsuLIN REG 1unit/0.01ml Soln (100units/ml) IV ONE (09:30)
[2021-02-22] MEDS ORDERED: FUROSEMIDE 40 MG/4 ML VIAL IV ONE (09:30)
[2021-02-22] MEDS ORDERED: CALCIUM GLUC 1,000mg/50ml-NS 50 ML IV ONE (09:30)
[2021-02-22] MEDS ORDERED: ALBUTEROL SULF 2.5 MG/0.5ML(0.5%) NEB SOLN NEB ONE (09:30)
[2021-02-22] MEDS ORDERED: FUROSEMIDE 20 MG/2 ML VIAL IV ONE (09:30)
[2021-02-22] MEDS ORDERED: DEXTROSE (50%) 50ML SYRG IV ONE (09:30)
[2021-02-22] MEDS ORDERED: NOREPINEPHRINE 8 MG/250ML KIT 250 ML IV ONE (09:32)
[2021-02-22] MEDS ORDERED: MIDAZOLAM DRIP 50 mg/50mL 50 ML IV ONE (09:32)
[2021-02-22 09:37] VITALS: BP 164/80
[2021-02-22] MEDS ORDERED: SODIUM BICARBONATE 8.4% INJ 50ML SYRINGE ONE ×3 (10:00→10:22)
[2021-02-22] MEDS ORDERED: FUROSEMIDE 40 MG/4 ML VIAL ONE (10:01)
[2021-02-22] MEDS ORDERED: SODIUM BICARBONATE 8.4 % INJ 50ML VIAL IV ONE (10:23)
[2021-02-22] MEDS ORDERED: EPINEPHrine HCL 1 MG/10 ML SYRG ONE ×2 (10:32→10:38)
[2021-02-22] MEDS ORDERED: EPINEPHrine HCL 250 ML IV ONE (10:45)
== END 2021-02-22 16:05 ==
LOC: EDBD 15:06 → ER 15:06
DX: N17.9 Acute kidney failure, unspecified (principal); G93.40 Encephalopathy, unspecified; E78.5 Hyperlipidemia, unspecified; K21.9 Gastro-esophageal reflux disease without esophagitis; I13.0 Hypertensive heart and chronic kidney disease with heart failure and stage 1 through stage 4 chronic kidney disease, or unspecified chronic kidney disease; E11.22 Type 2 diabetes mellitus with diabetic chronic kidney disease; N18.9 Chronic kidney disease, unspecified; I50.9 Heart failure, unspecified; Z79.82 Long term (current) use of aspirin; Z79.899 Other long term (current) drug therapy; Z20.822 Contact with and (suspected) exposure to COVID-19
CPT/HCPCS: 36415; 36600; 70450; 71045; 80053; 81001; 82805; 82962; 83605; 83735; 84132; 84484; 85025; 85379; 85610; 85730; 87070; 87205; 87426; 92950; 93005; 94002; 96361; 96365; 96366; 96367; 96375; 99285; C9803; J0171; J0330; J0610; J1265; J1720; J1815; J1940; J2250; J7042; U0003